=== PATIENT | male | born 1995 | race African-American/Black ===

== ENCOUNTER 2019-11-07 18:27 | Emergency (ER) | payer OTHER ==
[2019-11-07] MEDS ORDERED: DIPH/PERTUSS(ACELL)/TETANUS VAC/PF 0.5 ML SYR (>=10YO) IM ONE (19:28)
[2019-11-07] MEDS ORDERED: AMOXICILLIN TR/POT CLAVULANATE 875-125 MG TAB PO ONE (19:28)
--- NOTE | 2019-11-07 19:32 | ER Document Report ---
ED Medical Screen (RME) - General Chief Complaint: Finger Injury Stated Complaint: FINGER LACERATION Time Seen by Provider: 11/07/19 19:25 Mode of Arrival: Ambulatory Information source: Patient Notes: 24-year-old male presented to ED for crush injury to the second and third finger on the left hand. He states this happened about 5 PM. He states that a gun case fell on these 2 fingers. He states his tetanus is not up-to-date. He states he has no allergies. He denies any past medical or surgical history. He states he drinks about once a month smoker and oral drugs in at least the last month. Patient is alert oriented respirations regular nonlabored speaking in full sentences. There is no active bleeding at this time. Manual blood pressure of 180/102 in the triage area he does not have a history of high blood pressure I have greeted and performed a rapid initial assessment of this patient. A comprehensive ED assessment and evaluation of the patient, analysis of test res ults and completion of medical decision making process will be conducted by an additional ED providers. - Related Data Allergies/Adverse Reactions: No Known Allergies Allergy (Unverified 11/07/19 19:25) Physical Exam - Vital signs Vitals: Temp Pulse Resp BP Pulse Ox 98.4 F 88 18 162/101 H 97 11/07/19 19:03 11/07/19 19:03 11/07/19 19:03 11/07/19 19:03 11/07/19 19:03 Course - Vital Signs Vital signs: Temp Pulse Resp BP Pulse Ox 98.4 F 88 18 162/101 H 97 11/07/19 19:03 11/07/19 19:03 11/07/19 19:03 11/07/19 19:03 11/07/19 19:03
--- NOTE | 2019-11-07 20:01 | RADIOLOGY REPORT (SQ) ---
EXAM DESCRIPTION: FINGER LEFT IMAGES COMPLETED DATE/TIME: 11/07/2019 7:44 pm REASON FOR STUDY: Crush injury to left second and third finger COMPARISON: None. NUMBER OF VIEWS: Three views. TECHNIQUE: AP, lateral, and oblique images acquired of the left 2nd and 3rd fingers LIMITATIONS: None. FINDINGS: MINERALIZATION: Normal. BONES: No acute fracture or dislocation. No worrisome bone lesions. SOFT TISSUES: Bandages are present on the 2nd and 3rd fingers. OTHER: No other significant finding. IMPRESSION: No acute osseous abnormality. TECHNICAL DOCUMENTATION: JOB ID: [id number] 2010 [employer]- All Rights Reserved Reading location - IP/workstation name: [email or web address]
[2019-11-08] MEDS ORDERED: LIDOCAINE 1% INJ (10 MG/ML) 10 ML MDV INJ ONE ×2 (00:20→02:00)
[2019-11-08] MEDS ORDERED: HYDROCODONE/ACETAMINOPHEN 5-325 MG (6 TAB/ER DISP) PO PRN (00:20)
--- NOTE | 2019-11-08 00:24 | ER Document Report ---
ED General - General Chief Complaint: Laceration Stated Complaint: FINGER LACERATION Time Seen by Provider: 11/07/19 19:25 Mode of Arrival: Ambulatory Notes: Patient is a 24-year-old -[place] male with no reported past medical history who presents to the emergency department with a chief complaint of laceration to the left second and third digit on palmar surface that occurred around 5 or 5:30 PM yesterday evening. He states he was helping a friend move, lifting a heavy steel gun safe when they accidentally dropped it and it landed on 3 friends. He states he suffered lacerations and pain to the involved fingers. Denies any uncontrollable bleeding, numbness, tingling or weakness. He is unsure of his last tetanus. - Related Data Allergies/Adverse Reactions: No Known Allergies Allergy (Unverified 11/07/19 19:25) Past Medical History - General Information source: Patient - Social History Smoking Status: Former Smoker Frequency of alcohol use: Occasional Drug Abuse: None Family History: Reviewed & Not Pertinent Patient has homicidal ideation: No Review of Systems - Review of Systems Musculoskeletal: Other - Finger pain Skin: Other - Laceration -: Yes All other systems reviewed and negative Physical Exam - Vital signs Vitals: Temp Pulse Resp BP Pulse Ox 98.4 F 88 18 162/101 H 97 11/07/19 19:03 11/07/19 19:03 11/07/19 19:03 11/07/19 19:03 11/07/19 19:03 - General General appearance: Appears well, Alert In distress: None - Respiratory Respiratory status: No respiratory distress Chest status: Nontender Breath sounds: Normal Chest palpation: Normal - Cardiovascular Rhythm: Regular Heart sounds: Normal auscultation - Extremities General upper extremity: Other - Full passive range of motion of the second and third digits of the left hand with and without resistance. Good capillary refill distally. - Neurological Neuro grossly intact: Yes Cognition: Normal Orientation: AAOx4 Marti Coma Scale Eye Opening: Spontaneous Marti Coma Scale Verbal: Oriented Marti Coma Scale Motor: Obeys Commands Marti Coma Scale Total: 15 Speech: Normal Sensory: Normal - Psychological Associated symptoms: Normal affect, Normal mood - Skin Skin Color: Other - 2 lacerations to the palmar surface of the left index finger 1 Laceration to the palmar surface of the left middle finger. No foreign body visualized. Hemostasis maintained. Wound edges approximate well. Course - Re-evaluation Re-evalutation: 11/08/19 02:18 Patient tolerated wound closure well. X-rays negative for any acute process or foreign body per radiologist. Patient will follow-up in 2 to 3 days for wound recheck and reevaluation. Placed on Keflex prophylactically. Given a short course of [place] here for pain. He will follow-up in 7 to 10 days for suture removal. Counseled him to return here any ER immediately with any new, persistent or worsening symptoms. He verbalized understood and agreed. 11/08/19 02:19 Patient unaware of any high blood pressure. He will continue to monitor at home, could be situational. 11/08/19 02:19 - Vital Signs Vital signs: Temp Pulse Resp BP Pulse Ox 98.4 F 71 14 157/115 H 97 11/07/19 23:23 11/07/19 23:23 11/07/19 23:23 11/07/19 23:23 11/07/19 23:23 Procedures - Laceration/Wound Repair Left Finger 2nd digit Time completed: 02:17 Wound length (cm): 4.5 - Second digit 2.5 cm third digit 2 cm Wound's Depth, Shape: Superficial, Other - Second digit irregular jagged third digit linear Laceration pre-procedure: Sterile PPE donned, Betadine prep applied, Sterile drapes applied Anesthetic type: 1% Lidocaine Volume Anesthetic (mLs): 10 Wound explored: Clean Irrigated w/ Saline (mLs): 100 Wound Repaired With: Sutures Suture Size/Type: 4:0, Ethilon Number of Sutures: 7 Layer Closure?: No Post-procedure wound care: Sterile dressing applied Post-procedure NV exam normal: Yes Complications: No Discharge - Discharge Clinical Impression: Finger laceration Qualifiers: Encounter type: initial encounter Finger: unspecified finger Damage to nail status: without damage Foreign body presence: without foreign body Laterality: left Qualified Code(s): S61.219A - Laceration without foreign body of unspecified finger without damage to nail, initial encounter Condition: Stable Disposition: HOME, SELF-CARE Instructions: Laceration Care (OM) Additional Instructions: Your tetanus was updated today. Please follow-up in 2 to 3 days for wound recheck and reevaluation. Suture removal in approximately 7 to 10 days. He been placed on the antibiotic Keflex to help prevent infection. Please return here any ER immediately with any new, persistent or worsening symptoms. Prescriptions: Cephalexin Monohydrate [Keflex 500 mg Capsule] 500 mg PO BID 10 Days #20 capsule
[2019-11-08] MEDS ORDERED: AMOXICILLIN TR/POT CLAVULANATE 875-125 MG TAB PO ONE (02:00)
[2019-11-08] MEDS ORDERED: DIPH/PERTUSS(ACELL)/TETANUS VAC/PF 0.5 ML SYR (>=10YO) IM ONE (02:00)
[2019-11-08 03:02] VITALS: BP 160/112
== END 2019-11-08 03:05 | disposition home or self-care (01) ==
LOC: ER 18:27
PROC: 0HQGXZZ Repair Left Hand Skin, External Approach (ICD-10-PCS; principal; 2019-11-07)
DX: S61.211A Laceration without foreign body of left index finger without damage to nail, initial encounter (principal); S61.213A Laceration without foreign body of left middle finger without damage to nail, initial encounter; W23.0XXA Caught, crushed, jammed, or pinched between moving objects, initial encounter; Z87.891 Personal history of nicotine dependence
CPT/HCPCS: 12002; 99283; 90471; 73140; 90715; J3490

== ENCOUNTER 2019-11-10 11:28 | Emergency (ER) | payer OTHER ==
[2019-11-10 11:38] VITALS: BP 167/89
--- NOTE | 2019-11-10 11:43 | ER Document Report ---
ED Suture/Wound Recheck - General Chief Complaint: Suture Recheck Stated Complaint: FOLLOW UP VISIT/SUTURES IN FINGERS Time Seen by Provider: 11/10/19 11:36 Mode of Arrival: Ambulatory Information source: Patient Notes: 24-year-old male presented to ED for suture recheck for his laceration to the left second and third finger. Lacerations are intact there is no signs of infection. He does have limited movement of the second finger more movement to the third. He states he knows he is just come in to get the wounds evaluated and then has to get the sutures removed in 10 days. Patient is alert oriented respirations regular nonlabored speaking in full sentences. We will redress the fingers. I will give him instructions on cleaning the fingers and bacitracin 3 times daily and to follow-up as he has been scheduled for removal of sutures. I also recommended that he follow-up with orthopedic due to the decreased movement to the one finger. - HPI Previous ED treatment: Laceration repair Antibiotics given previously: Prescription Quality of pain: Achy Severity: Moderate Pain Level: 3 Context: Injury Symptoms since procedure: Pain. denies: Drainage, Fever Exacerbated by: Walking Relieved by: Remaining still - Related Data Allergies/Adverse Reactions: No Known Allergies Allergy (Verified 11/10/19 11:36) Past Medical History - General Information source: Patient - Social History Smoking Status: Never Smoker Chew tobacco use (# tins/day): No Frequency of alcohol use: Social Drug Abuse: None Family History: Reviewed & Not Pertinent Patient has homicidal ideation: No - Past Medical History Cardiac Medical History: Reports: None Pulmonary Medical History: Reports: None EENT Medical History: Reports: None Neurological Medical History: Reports: None Endocrine Medical History: Reports: None Renal/ Medical History: Reports: None Malignancy Medical History: Reports None GI Medical History: Reports: None Musculoskeletal Medical History: Reports None Skin Medical History: Reports None Psychiatric Medical History: Reports: None Traumatic Medical History: Reports: None Infectious Medical History: Reports: None Surgical Hx: Negative Past Surgical History: Reports: None - Immunizations Immunizations up to date: Yes Hx Diphtheria, Pertussis, Tetanus Vaccination: Yes Review of Systems - Review of Systems Constitutional: No symptoms reported EENT: No symptoms reported Cardiovascular: No symptoms reported Respiratory: No symptoms reported Gastrointestinal: No symptoms reported Genitourinary: No symptoms reported Male Genitourinary: No symptoms reported Musculoskeletal: No symptoms reported Skin: Other - Healing lacerations to the second and third finger left hand no drainage at this time Hematologic/Lymphatic: No symptoms reported Neurological/Psychological: No symptoms reported -: Yes All other systems reviewed and negative Physical Exam - Vital signs Vitals: Temp 98.5 F 11/10/19 11:36 Interpretation: Normal - General General appearance: Appears well, Alert - HEENT Head: Normocephalic, Atraumatic Eyes: Normal Pupils: PERRL - Respiratory Respiratory status: No respiratory distress Chest status: Nontender Breath sounds: Normal Chest palpation: Normal - Cardiovascular Rhythm: Regular Heart sounds: Normal auscultation Murmur: No - Abdominal Inspection: Normal Distension: No distension Bowel sounds: Normal Tenderness: Nontender Organomegaly: No organomegaly - Back Back: Normal, Nontender - Extremities General upper extremity: Normal color, Normal temperature General lower extremity: Normal inspection, Nontender, Normal color, Normal ROM, Normal temperature, Normal weight bearing. No: Nely's sign Hand: Tender, No evidence of human bite - Healing lacerations to the left second and third finger decreased range of motion to the left ring finger, No evidence of FB, Swelling, Other - Neurological Neuro grossly intact: Yes Cognition: Normal Orientation: AAOx4 Marti Coma Scale Eye Opening: Spontaneous Marti Coma Scale Verbal: Oriented Marti Coma Scale Motor: Obeys Commands Marti Coma Scale Total: 15 Speech: Normal Motor strength normal: LUE, RUE, LLE, RLE Sensory: Normal - Psychological Associated symptoms: Normal affect, Normal mood - Skin Skin Temperature: Warm Skin Moisture: Dry Skin Color: Normal Course - Vital Signs Vital signs: Temp Pulse Resp BP Pulse Ox 98.5 F 11/10/19 11:36 Discharge - Discharge Clinical Impression: Suture check Condition: Stable Disposition: HOME, SELF-CARE Additional Instructions: Seen today for recheck on your sutures. They are healing well. You need to start cleaning them now 3 times a day apply bacitracin and change the dressing. Please keep the hand clean and dry. SOAP CLEANSING: Gently wash the wound daily using a mild soap (like Ivory, Phisoderm, Neutrogena). Use warm water, rubbing gently until all debris, ooze, and crusting have been washed from the wound. Allow to dry briefly (about 10 minutes) after cleaning. Repeat this cleansing at least three times a day for the first two days and then once or twice a day. ANTIBIOTIC OINTMENT PROTECTION: Your wounds are such that dressing them is not practical or optional. After cleansing, you should apply a thin coating of antibiotic ointment (Bacitracin, not Neosporin) to the wounds at least three times daily. This lessens infection risk, and may decrease the amount of scarring. Use a q-tip or dull butter knife, not your finger, to apply this ointment. Any debris or ooze which builds up in the ointment should be gently rubbed off with a sterile gauze pad. Harder crusting may need to be gently scrubbed off with a clean wash cloth with soap and warm water, perhaps applying a warm, wet wash cloth to the wound for ten minutes first. Development of redness, severe itching, or blistering may mean allergy to the ointment. See the doctor. FOLLOW-UP CARE: If you have been referred to a physician for follow-up care, call the physicia office for an appointment as you were instructed or within the next two days. If you experience worsening or a significant change in your symptoms, notify the physician immediately or return to the Emergency Department at any time for re-evaluation. Forms: Special Work Note, Elevated Blood Pressure Referrals: VELVET GANNON DO [ACTIVE STAFF] - Follow up in 3-5 days
== END 2019-11-10 11:47 | disposition home or self-care (01) ==
LOC: ER 11:28
DX: S61.211D Laceration without foreign body of left index finger without damage to nail, subsequent encounter (principal); S61.213D Laceration without foreign body of left middle finger without damage to nail, subsequent encounter; X58.XXXD Exposure to other specified factors, subsequent encounter
CPT/HCPCS: 99281

== ENCOUNTER 2020-06-24 14:24 | Emergency (ER) | payer SELFPAY ==
--- NOTE | 2020-06-24 14:33 | ER Document Report ---
ED Medical Screen (RME) - General Chief Complaint: Abnormal Lab Results Stated Complaint: ABNORMAL LABS Time Seen by Provider: 06/24/20 14:27 Notes: Patient presents with midsternal chest pain off and on for the past 3 days. Patient states pain is a constant pressure that is occasionally sharp. Patient denies any cough or cold symptoms. Patient denies any nausea vomiting or diarrhea. Patient reports that his mother in her early age due to congestive heart failure. Patient denies any recent immobilization travel or history of clots. Patient denies any significant underlying medical problems. I have greeted and performed a rapid initial assessment of this patient. A comprehensive ED assessment and evaluation of the patient, analysis of test results and completion of the medical decision making process will be conducted by additional ED providers. - Related Data Allergies/Adverse Reactions: No Known Allergies Allergy (Verified 11/10/19 11:36) Past Medical History - Immunizations Immunizations up to date: Yes Hx Diphtheria, Pertussis, Tetanus Vaccination: Yes Physical Exam - Vital signs Vitals: Temp Pulse Resp BP Pulse Ox 98.1 F 91 16 161/103 H 99 06/24/20 14:28 06/24/20 14:28 06/24/20 14:28 06/24/20 14:28 06/24/20 14:28 - General General appearance: Appears well, Alert - Respiratory Respiratory status: No respiratory distress Chest status: Tender Course - Vital Signs Vital signs: Temp Pulse Resp BP Pulse Ox 98.1 F 91 16 161/103 H 99 06/24/20 14:28 06/24/20 14:28 06/24/20 14:28 06/24/20 14:28 06/24/20 14:28
[2020-06-24 15:01] LABS: ABSOLUTE BASOPHILS # (AUTO) 0.1 10^3/uL (0.0-0.2); ABSOLUTE EOSINOPHILS # (AUTO) 0.1 10^3/uL (0.0-0.6); ABSOLUTE LYMPHOCYTES (AUTO) 1.9 10^3/uL (0.5-4.7); ABSOLUTE MONOCYTES (AUTO) 0.3 10^3/uL (0.1-1.4); ABSOLUTE NEUT (AUTO) 3.3 10^3/uL (1.7-8.2); BASOPHILS % (AUTO) 1.1 % (0-2); EOSINOPHILS % (AUTO) 2.2 % (0-6); HEMATOCRIT 51.5 % (37.9-51.0); HEMOGLOBIN 16.9 g/dL (13.5-17.0); MEAN CORPUSCULAR HEMOGLOBIN 26.2 pg (27.0-33.4); MEAN CORPUSCULAR HGB CONC 32.8 g/dL (32.0-36.0); MEAN CORPUSCULAR VOLUME 80 fl (80-97); MONOCYTES % (AUTO) 5.3 % (3-13); PLATELET COUNT 181 10^3/uL (150-450); RED BLOOD COUNT 6.45 10^6/uL (4.35-5.55); RED CELL DISTRIBUTION WIDTH 13.4 % (11.5-14.0); SEGMENTED NEUTROPHILS % (AUTO) 57.4 % (42-78); TOTAL CELLS COUNTED % (AUTO) 100 %; WHITE BLOOD COUNT 5.7 10^3/uL (4.0-10.5)
--- NOTE | 2020-06-24 15:05 | RADIOLOGY REPORT (SQ) ---
EXAM DESCRIPTION: CHEST 2 VIEWS IMAGES COMPLETED DATE/TIME: 06/24/2020 11:42 am REASON FOR STUDY: cp COMPARISON: None. EXAM PARAMETERS: NUMBER OF VIEWS: two views TECHNIQUE: Digital Frontal and Lateral radiographic views of the chest acquired. RADIATION DOSE: NA LIMITATIONS: none FINDINGS: LUNGS AND PLEURA: No opacities, masses or pneumothorax. No pleural effusion. MEDIASTINUM AND HILAR STRUCTURES: No masses or contour abnormalities. HEART AND VASCULAR STRUCTURES: Heart normal size. No evidence for failure. BONES: No acute findings. HARDWARE: None in the chest. OTHER: No other significant finding. IMPRESSION: NO ACUTE RADIOGRAPHIC FINDING IN THE CHEST. TECHNICAL DOCUMENTATION: JOB ID: [id number] 2010 [employer]- All Rights Reserved Reading location - IP/workstation name: [email or web address]
[2020-06-24 15:22] LABS: ALBUMIN 4.7 g/dL (3.5-5.0); ALKALINE PHOSPHATASE 59 U/L (38-126); ANION GAP 8 (5-19); ASPARTATE AMINO TRANSFERASE 37 U/L (17-59); BILIRUBIN,DIRECT 0.1 mg/dL (0.0-0.4); BILIRUBIN,TOTAL 0.9 mg/dL (0.2-1.3); BLOOD UREA NITROGEN 12 mg/dL (7-20); CARBON DIOXIDE 31 mmol/L (22-30); CHLORIDE 99 mmol/L (98-107); GLUCOSE 111 mg/dL (75-110); POTASSIUM 4.4 mmol/L (3.6-5.0); TOTAL PROTEIN 8.1 g/dL (6.3-8.2)
--- NOTE | 2020-06-24 17:19 | ER Document Report ---
ED General - General Chief Complaint: Chest Pain Stated Complaint: ABNORMAL LABS Time Seen by Provider: 06/24/20 14:27 Primary Care Provider: LEOBARDO [facility] [Provider Group] - Follow up as needed [facility] [Provider Group] - Follow up as needed - HPI Notes: Patient is a 24-year-old male with no medical history who presents with chest pain for the past 2 days. Patient describes the pain as intermittent and substernal. He reports night sweats but denies shortness of breath, palp itation, fever, abdominal pain, vomiting, and cough. Patient reports his mother had a history of hypertension and last year from congestive heart failure at the age of 46. Patient denies any history of tobacco use. He reports occasional alcohol use but denies any recreational drug use. He denies any hormone therapy, history of blood clots, or recent travel. - Related Data Allergies/Adverse Reactions: No Known Allergies Allergy (Verified 06/24/20 14:33) Home Medications: denies Past Medical History - General Information source: Patient - Social History Smoking Status: Never Smoker Chew tobacco use (# tins/day): No Frequency of alcohol use: Social Drug Abuse: None Family History: Reviewed & Not Pertinent Patient has homicidal ideation: No - Immunizations Immunizations up to date: Yes Hx Diphtheria, Pertussis, Tetanus Vaccination: Yes Review of Systems - Review of Systems Constitutional: See HPI EENT: No symptoms reported Cardiovascular: See HPI Respiratory: No symptoms reported Gastrointestinal: No symptoms reported Genitourinary: No symptoms reported Male Genitourinary: No symptoms reported Musculoskeletal: No symptoms reported Skin: No symptoms reported Hematologic/Lymphatic: No symptoms reported Neurological/Psychological: No symptoms reported Physical Exam - Vital signs Vitals: Temp Pulse Resp BP Pulse Ox 98.1 F 91 16 161/103 H 99 06/24/20 14:28 06/24/20 14:28 06/24/20 14:28 06/24/20 14:28 06/24/20 14:28 - Notes Notes: PHYSICAL EXAMINATION: VITALS: Vitals reviewed and within normal limits. GENERAL: Well-appearing, well-nourished and in no acute distress. HEAD: Atraumatic, normocephalic. EYES: Pupils equal, round, and reactive to light, extraocular movements intact, sclera anicteric, conjunctiva are normal. ENT: Nares patent. Moist mucous membranes. Oropharynx clear without exudates. NECK: Normal range of motion, supple without lymphadenopathy. LUNGS: Breath sounds clear to auscultation bilaterally and equal. No wheezes, rales, or rhonchi. HEART: Regular, rate, and rhythm without murmurs. ABDOMEN: Soft, nontender, normoactive bowel sounds. No guarding, no rebound. No masses appreciated. EXTREMITIES: Normal range of motion, no pitting or edema. No cyanosis. NEUROLOGICAL: No focal neurological deficits. Moves all extremities spontaneously and on command. PSYCH: Normal mood, normal affect. SKIN: Warm, Dry, normal turgor, no rashes or lesions noted. Course - Re-evaluation Re-evalutation: Presentation of chest pain in an otherwise well appearing patient. Low clinical suspicion for ACS given clinical history, exam, EKG without ST elevations or depressions, and negative initial troponin. HEART score less than or equal to 3. PE also seems unlikely given clinical history, absence of tachycardia or dyspnea. Patient is PERC criteria negative. CXR without evidence of pneumothorax or pneumonia. No widened mediastinum. Aortic dissection also seems unlikely given history, symmetric pulses, CXR, and vitals. HEART Score:1 Chest pain in a patient without evidence of cardiac or other serious etiology on workup today. I discussed with patient that, based on their age, risk factors and emergency department testing today, the likelihood that their symptoms are related to a heart attack is very low (estimated risk of heart attack or over the next 30 days of less than 1%). The patient demonstrates decision making capacity and has verbalized an understanding of these risks to me. Based on this, the patient has chosen to follow-up as an outpatient. Usual chest pain return precautions reviewed. The patient states understanding and agreement with this plan. - Vital Signs Vital signs: Temp Pulse Resp BP Pulse Ox 98.4 F 91 17 171/106 H 99 06/24/20 17:25 06/24/20 14:28 06/24/20 17:25 06/24/20 17:25 06/24/20 17:25 - Laboratory Results Result Diagrams: 06/24/20 14:46 06/24/20 14:46 Laboratory Results Interpreted: 06/24/20 06/24/20 14:46 14:46 RBC 6.45 H Hct 51.5 H MCH 26.2 L Carbon Dioxide 31 H Creatinine 1.36 H Glucose 111 H Critical Laboratory Results Reviewed: No Critical Results - Radiology Results Critical Radiology Results Reviewed: No Critical Results Discharge - Discharge Clinical Impression: Chest wall pain Chest pain Qualifiers: Chest pain type: unspecified Qualified Code(s): R07.9 - Chest pain, unspecified Condition: Stable Disposition: HOME, SELF-CARE Additional Instructions: You were seen today for chest pain. The exact cause of your pain is unclear. However, based on your cardiac enzyme testing, chest x-ray, and EKG it does not appear that it is from an immediately life-threatening cause at this time. Although your testing here is normal is critical that you follow-up with your primary care physician for continued evaluation of this chest pain and possible stress testing. I recommended you see your physician within the next 24-48 sandhya rs to be evaluated for consideration of a stress test. Please return to emergency department immediately if you have worsening of your chest pain, shortness of breath, vomiting, become unable to exert yourself due to pain or difficulty breathing, you pass out, or have any pain that radiates into your arms, jaw, or back. Please also return if you have any additional symptoms that are concerning to you. Forms: Elevated Blood Pressure Referrals: [facility] [Provider Group] - Follow up as needed [facility] [Provider Group] - Follow up as needed
[2020-06-24 17:33] VITALS: BP 171/106
--- NOTE | 2020-06-24 17:42 | EKG REPORT ---
SEVERITY:- NORMAL ECG - SINUS RHYTHM : Confirmed by: Jef Freed MD 24-Jun-2020 17:41:52
== END 2020-06-24 17:33 | disposition home or self-care (01) ==
LOC: ER 14:24
DX: R07.89 Other chest pain (principal)
CPT/HCPCS: 36415; 71046; 80053; 83690; 84484; 85025; 93005; 93010; 99285